=== PATIENT | male | born 1965 | race Caucasian/White ===

== ENCOUNTER → 2023-08-06 07:25 | Outpatient (REF) | payer BC, SELFPAY | LOC: RAD 07:25 | PROVIDERS: ATTENDING PHYSICIAN Specialist; FAMILY PHYSICIAN Family Medicine | DX: Z96.642 Presence of left artificial hip joint (principal); M79.662 Pain in left lower leg; M79.89 Other specified soft tissue disorders | CPT/HCPCS: 93971 ==

== ENCOUNTER → 2024-02-11 16:01 | Outpatient (REF) | payer BC, SELFPAY | LOC: HWRCS 16:01 | PROVIDERS: ATTENDING PHYSICIAN Internal Medicine Cardiovascular Disease; FAMILY PHYSICIAN Family Medicine | DX: I10 Essential (primary) hypertension (principal); R60.0 Localized edema | CPT/HCPCS: 93306 ==

== ENCOUNTER → 2025-04-15 09:23 | Outpatient (REF) | payer BC, SELFPAY | LOC: RAD 09:23 | PROVIDERS: ATTENDING PHYSICIAN Physician Assistant; FAMILY PHYSICIAN Family Medicine | DX: R22.1 Localized swelling, mass and lump, neck (principal) | CPT/HCPCS: 76536 ==